=== PATIENT | female | born 1995 | race Caucasian/White ===

== ENCOUNTER 2017-06-15 13:28 | Emergency (ER) | payer SELFPAY ==
[2017-06-15] MEDS ORDERED: Ondansetron 4 MG/2 ML SDV IVPUSH ONE (14:30)
[2017-06-15] MEDS ORDERED: Ketorolac 30 MG/ML SDV IVPUSH ONE (14:30)
--- NOTE | 2017-06-15 14:50 | EDM.PDOC ---
ED HPI GENERAL MEDICAL PROBLEM - General Chief Complaint: Flank Pain Stated Complaint: KIDNEY INFECTION/STONE CAN'T KEEP ANYTHING DOWN Time Seen by Provider: 06/15/17 14:00 Source of Information: Reports: Patient, Family History Limitations: Reports: No Limitations - History of Present Illness INITIAL COMMENTS - FREE TEXT/NARRATIVE: 22-year-old female with right-sided flank pain for the past several days, nausea and vomiting but no dysuria. She also had a fever 2 days ago. In the clinic yesterday she was found to have a UTI and started on Bactrim, also given Flomax and hydrocortisone for a presumptive nephrolithiasis which she has had in the past. Onset: Unknown/Unsure Severity: Moderate Associated Symptoms: Reports: Fever/Chills, Malaise. Denies: Chest Pain, Cough Right Flank Pain Score (Numeric/FACES): 4 - Related Data Allergies Allergy/AdvReac Type Severity Reaction Status Date / Time No Known Allergies Allergy Verified 06/15/17 13:47 Home Meds: Home Meds Hydrocodone/Acetaminophen [Hydrocodon-Acetaminophen 5-325] 1 - 2 tab PO Q4H PRN 06/15/17 [History] Sulfamethoxazole/Trimethoprim [Sulfamethoxazole-Tmp Ds Tablet] 1 each PO BID [History] Tamsulosin [Tamsulosin 24 Hr] 0.4 mg PO DAILY 06/15/17 [History] Past Medical History Genitourinary History: Reports: Renal Calculus, UTI, Recurrent Psychiatric History: Reports: Anxiety Social & Family History - Family History : Reports: Renal Calculus - Tobacco Use Smoking Status *Q: Never Smoker Second Hand Smoke Exposure: No - Alcohol Use Days Per Week of Alcohol Use: 2 Number of Drinks Per Day: 4 Total Drinks Per Week: 8 - Recreational Drug Use Recreational Drug Use: No ED ROS GENERAL - Review of Systems Review Of Systems: See Below Constitutional: Reports: Chills, Malaise Respiratory: Denies: Shortness of Breath Cardiovascular: Denies: Chest Pain GI/Abdominal: Reports: Abdominal Pain. Denies: Vomiting : Reports: Flank Pain. Denies: Urgency Skin: Reports: No Symptoms Neurological: Denies: Headache ED EXAM, RENAL/ - Physical Exam Exam: See Below Exam Limited By: No Limitations General Appearance: Alert, No Apparent Distress Eye Exam: Bilateral Eye: Normal Inspection Head: Atraumatic Respiratory/Chest: No Respiratory Distress, Lungs Clear Cardiovascular: Regular Rate, Rhythm Extremities: Normal Inspection Neurological: Alert, Oriented Psychiatric: Normal Affect, Normal Mood Skin Exam: Warm, Dry Course - Vital Signs Last Recorded V/S: Last Vital Signs Temp 96.6 F 06/15/17 13:55 Pulse 111 H 06/15/17 15:51 Resp 18 06/15/17 15:51 BP 105/60 06/15/17 15:51 Pulse Ox 98 06/15/17 15:51 - Orders/Labs/Meds Orders: Active Orders 24 hr Category Date Time Status Abdomen Pelvis wo Cont [CT] Stat Exams 06/15/17 14:08 Ordered UA W/MICROSCOPIC [URIN] Urgent Lab 06/15/17 15:25 Ordered Labs: Laboratory Tests 06/15/17 06/15/17 06/15/17 Range/Units 14:48 14:48 15:25 WBC 17.6 H (4.5-11.0) K/uL RBC 4.97 (3.30-5.50) M/uL Hgb 14.3 (12.0-15.0) g/dL Hct 40.3 (36.0-48.0) % MCV 81 (80-98) fL MCH 29 (27-31) pg MCHC 36 (32-36) % Plt Count 231 (150-400) K/uL Neut % (Auto) 93 H (36-66) % Lymph % (Auto) 2 L (24-44) % [place] % (Auto) 6 (2-6) % Eos % (Auto) 0 L (2-4) % Baso % (Auto) 0 (0-1) % Sodium 135 L (140-148) mmol/L Potassium 3.4 L (3.6-5.2) mmol/L Chloride 97 L (100-108) mmol/L Carbon Dioxide 24 (21-32) mmol/L Anion Gap 17.4 H (5.0-14.0) mmol/L BUN 14 (7-18) mg/dL Creatinine 1.9 H D (0.6-1.0) mg/dL Est Cr Clr Drug Dosing 40.78 mL/min Estimated GFR (MDRD) 34 L (>60) Glucose 105 (74-106) mg/dL Calcium 9.0 (8.5-10.1) mg/dL Urine Color Yellow Urine Appearance Clear Urine pH 5.0 (4.5-8.0) Ur Specific Lam[place] 1.020 (1.008-1.030) Urine Protein Negative (NEGATIVE) mg/dL Urine Glucose (UA) Normal (NEGATIVE) mg/dL Urine Ketones 50 H (NEGATIVE) mg/dL Urine Occult Blood Negative (NEGATIVE) Urine Nitrite Negative (NEGATIVE) Urine Bilirubin Negative (NEGATIVE) Urine Urobilinogen Normal (NORMAL) mg/dL Ur Leukocyte Esterase Negative (NEGATIVE) Urine RBC Not seen (0-5) Urine WBC 0-5 (0-5) Ur Epithelial Cells Few Amorphous Sediment Many Urine Bacteria Moderate Urine Mucus Moderate Urine Other Meds: Medications Discontinued Medications Generic Name Dose Route Start Last Admin Trade Name Freq PRN Reason Stop Dose Admin Sodium Chloride 1,000 mls @ 1,000 mls/hr 06/15/17 15:00 06/15/17 14:51 Normal Saline IV 1,000 mls/hr ASDIRECTED ADEEL Administration Sodium Chloride 75 mls @ 3.5 mls/sec 06/15/17 15:04 Normal Saline IV 06/15/17 15:05 ONETIME ONE Ceftriaxone Sodium 1 gm/ 50 mls @ 100 mls/hr 06/15/17 16:00 06/15/17 16:08 Sodium Chloride IV 06/15/17 16:29 100 mls/hr ONETIME ONE Administration Iopamidol 100 ml 06/15/17 15:15 Isovue-300 (61%) IV . DIRECTED [facility] Ketorolac Tromethamine 30 mg 06/15/17 14:30 06/15/17 14:49 Toradol IVPUSH 06/15/17 14:31 30 mg ONETIME ONE Administration Ondansetron HCl 4 mg 06/15/17 14:30 06/15/17 14:47 Zofran IVPUSH 06/15/17 14:31 4 mg ONETIME ONE Administration Sodium Chloride 10 ml 06/15/17 15:04 06/15/17 16:52 Saline Flush FLUSH 06/15/17 15:05 10 ml ONETIME ONE Administration - Re-Assessments/Exams Free Text/Narrative Re-Assessment/Exam: 06/15/17 15:24 CT the abdomen and pelvis was obtained and confirmed a very large obstructing proximal right ureteral stone. CBC and BMP were then obtained, white count was over 17,000, creatinine 1.9 and GFR 34. A phone consultation was made with urology at that point. 06/15/17 16:10 UA now shows moderate bacteria but no white cells. It may be partially responsive to the oral Bactrim she is taken to this point. Urology in [place] accepted the patient to the hospitalist service at [facility] in [place]. Patient was given 1 g of IV Rocephin and will be transported by private car. Departure - Departure Time of Disposition: 16:58 Disposition: DC/Tfer to Other 70 Condition: Fair Clinical Impression: Nephrolithiasis - Discharge Information Instructions: Kidney Stones, [id number] Referrals: PCP,None [Primary Care Provider] - Forms: ED Department Discharge Care Plan Goals: Go directly to [facility] in [facility]. Avoid eating anything and only sips of water in route. - My Orders Last 24 Hours: My Active Orders 06/15/17 14:08 Abdomen Pelvis wo Cont [CT] Stat 06/15/17 15:25 UA W/MICROSCOPIC [URIN] Urgent - Assessment/Plan Last 24 Hours: My Active Orders 06/15/17 14:08 Abdomen Pelvis wo Cont [CT] Stat 06/15/17 15:25 UA W/MICROSCOPIC [URIN] Urgent
[2017-06-15] MEDS ORDERED: Sodium Chloride 0.9% 1,000 ML IV SCH (15:00)
[2017-06-15] MEDS ORDERED: Sodium Chloride 0.9% 10 ML Syringe FLUSH ONE (15:04)
[2017-06-15] MEDS ORDERED: Sodium Chloride 0.9% 75 ML IV ONE (15:04)
[2017-06-15] MEDS ORDERED: Iopamidol 612 MG/ML 100 ML Bottle IV SCH (15:15)
[2017-06-15 15:52] VITALS: BP 105/60
[2017-06-15] MEDS ORDERED: cefTRIAXone 1 GM in Sodium Chloride 0.9% 50 ML IV ONE (16:00)
== END 2017-06-15 16:58 | disposition other institution (70) ==
LOC: JP.ED 13:28
DX: N20.0 Calculus of kidney (principal); Z87.442 Personal history of urinary calculi
CPT/HCPCS: 36415; 74176; 80048; 81001; 85025; 96361; 96365; 96375; 99284; 99285; J0696; J1885; J2405; J7040; J7050

== ENCOUNTER 2017-07-10 10:59 | Emergency (ER) | payer BC, OTHER ==
[2017-07-10 11:16] VITALS: BP 128/69
--- NOTE | 2017-07-10 12:09 | EDM.PDOC ---
ED HPI GENERAL MEDICAL PROBLEM - General Chief Complaint: Genitourinary Problem Stated Complaint: NEPHROSTOMY TUBE WITH BLOOD Time Seen by Provider: 07/10/17 11:47 Source of Information: Reports: Patient, RN Notes Reviewed History Limitations: Reports: No Limitations - History of Present Illness INITIAL COMMENTS - FREE TEXT/NARRATIVE: 22-year-old female presents to the emergency department today with concerns about her nephrostomy tube, she recently had this placed on 15 June unfortunately today she pulled the stitch out which secures the tube to the outside after consultation with the triage nurse recommend report to the emergency department for further evaluation. She has no complaints at this time the tube is still producing urine in her bag Right Flank Pain Score (Numeric/FACES): 2 - Related Data Allergies Allergy/AdvReac Type Severity Reaction Status Date / Time No Known Allergies Allergy Verified 07/10/17 11:26 Home Meds: Home Meds Sulfamethoxazole/Trimethoprim [Sulfamethoxazole-Tmp Ds Tablet] 1 each PO BID [History] Tamsulosin [Tamsulosin 24 Hr] 0.4 mg PO DAILY 06/15/17 [History] Citalopram [Citalopram HBr] 20 mg PO DAILY 07/10/17 [History] oxyCODONE 5 mg PO Q4HR 07/10/17 [History] Past Medical History Genitourinary History: Reports: Renal Calculus, UTI, Recurrent Psychiatric History: Reports: Anxiety Social & Family History - Family History : Reports: Renal Calculus - Tobacco Use Smoking Status *Q: Never Smoker - Recreational Drug Use Recreational Drug Use: No ED ROS GENERAL - Review of Systems Review Of Systems: See Below Constitutional: Reports: No Symptoms Respiratory: Reports: No Symptoms Cardiovascular: Reports: No Symptoms GI/Abdominal: Reports: No Symptoms : Reports: No Symptoms ED EXAM, GENERAL - Physical Exam Exam: See Below Free Text/Narrative:: Examination of the nephrostomy tube appears to be in place area around the wound is clean dry and intact the stitch is loose the nephrostomy tube is located at approximately the stitch placement site bed connected to the tube still has urine present. Exam Limited By: No Limitations General Appearance: Alert, WD/WN, No Apparent Distress Respiratory/Chest: No Respiratory Distress GI/Abdominal: Soft, Non-Tender Course - Vital Signs Last Recorded V/S: Last Vital Signs Temp 98 F 07/10/17 11:27 Pulse 95 07/10/17 11:27 Resp 14 07/10/17 11:27 BP 128/69 07/10/17 11:27 Pulse Ox 99 07/10/17 11:27 Departure - Departure Time of Disposition: 12:07 Disposition: Home, Self-Care 01 Condition: Good Clinical Impression: Displacement of nephrostomy tube - Discharge Information Referrals: PCP,None [Primary Care Provider] - Additional Instructions: Secure your tube with tape, there are no concerns with the nephrostomy tube as long as it continues to produce urine, however if urine is no longer being produced in your bag recommend follow-up with interventional radiology in [facility] for immediate replacement of the tube. - Assessment/Plan Plan: Assessment Acuity = acute Site and laterality = nephrostomy tube check Etiology = pulled exterior stitch from nephrostomy tube Manifestations = none Location of injury = Home Lab values = none Plan Called discussed case with Dr. Stanley interventional radiology recommended taping the tube in place no issues at this time as long as the tube continues to function and produce urine. If no longer producing urine recommend follow-up in [place] for replacement of the tube This note was dictated using [employer] voice recognition software please call with any questions on syntax or grammar.
== END 2017-07-10 12:32 | disposition home or self-care (01) ==
LOC: JP.ED 10:59
DX: T83.022A Displacement of nephrostomy catheter, initial encounter (principal); Z79.899 Other long term (current) drug therapy; X58.XXXA Exposure to other specified factors, initial encounter
CPT/HCPCS: 99283

== ENCOUNTER 2017-08-06 09:40 | Emergency (ER) | payer BC ==
[2017-08-06] MEDS ORDERED: Sodium Chloride 0.9% 1,000 ML IV SCH (10:00)
--- NOTE | 2017-08-06 10:28 | EDM.PDOC ---
ED HPI GENERAL MEDICAL PROBLEM - General Chief Complaint: Neurological Problem Stated Complaint: CONFUSED/LT SIDE NUMBNESS Time Seen by Provider: 08/06/17 10:15 Source of Information: Reports: Patient, Family History Limitations: Reports: Physical Impairment (Patient is repetitive questioning, having difficulty answering questions) - History of Present Illness INITIAL COMMENTS - FREE TEXT/NARRATIVE: 22-year-old female that has had an increase in headaches over the past week and today developed a fairly sudden onset of right leg and right arm numbness, confusion, and dizziness. Her significant other who has been with her for 2 years was worried about her and brought her in, she is having difficulty answering questions. She just repeatedly says I don't know, I don't know. Even when asked if she has a headache she says no, then yes. Denies any visual complaints, shortness of breath, nausea or vomiting. Onset: Sudden (Suddenly worse this morning at around 9 AM) Duration: Other (Significant symptoms have lasted 1-1/2 hours) Severity: Moderate Associated Symptoms: Reports: Confusion, Headaches, Malaise, Other ( Paresthesias of the extremities) - Related Data Allergies Allergy/AdvReac Type Severity Reaction Status Date / Time No Known Allergies Allergy Verified 08/06/17 10:23 Home Meds: Home Meds Citalopram [Citalopram HBr] 20 mg PO DAILY 07/10/17 [History] Past Medical History Genitourinary History: Reports: Renal Calculus, UTI, Recurrent Psychiatric History: Reports: Anxiety Social & Family History - Family History : Reports: Renal Calculus - Tobacco Use Smoking Status *Q: Never Smoker - Caffeine Use Caffeine Use: Reports: None - Recreational Drug Use Recreational Drug Use: No ED ROS GENERAL - Review of Systems Review Of Systems: See Below Constitutional: Denies: Fever, Chills HEENT: Denies: Vision Change Respiratory: Denies: Shortness of Breath Cardiovascular: Denies: Chest Pain GI/Abdominal: Reports: Nausea, Vomiting Musculoskeletal: Reports: No Symptoms Skin: Denies: Rash Neurological: Reports: Confusion, Headache Psychiatric: Reports: Anxiety ED EXAM, NEURO - Physical Exam Exam: See Below Exam Limited By: No Limitations General Appearance: Alert, No Apparent Distress, Anxious (Patient is extremely anxious) Eye Exam: Bilateral Eye: Normal Inspection Head Exam: Atraumatic Respiratory/Chest: No Respiratory Distress, Lungs Clear Cardiovascular: Regular Rate, Rhythm. No: Tachycardia GI/Abdominal: Non-Tender Neurological: Alert, No Motor/Sensory Deficits, Other (Patient was able to stand and Romberg is negative but she doesn't cooperate well with the exam. Grasp strength is equal.) Psychiatric: Anxious Skin Exam: Warm, Dry Course - Vital Signs Last Recorded V/S: Last Vital Signs Temp 96.4 F 08/06/17 13:31 Pulse 71 08/06/17 13:31 Resp 16 08/06/17 13:31 BP 100/64 08/06/17 13:31 Pulse Ox 100 08/06/17 13:31 - Orders/Labs/Meds Orders: Active Orders 24 hr Category Date Time Status DRUG SCREEN, URINE [URCHEM] Stat Lab 08/06/17 13:33 Ordered UA W/MICROSCOPIC [URIN] Stat Lab 08/06/17 13:33 Ordered Labs: Laboratory Tests 08/06/17 08/06/17 08/06/17 Range/Units 10:00 10:00 10:19 WBC 6.9 (4.5-11.0) K/uL RBC 4.72 (3.30-5.50) M/uL Hgb 13.4 (12.0-15.0) g/dL Hct 38.3 (36.0-48.0) % MCV 81 (80-98) fL MCH 28 (27-31) pg MCHC 35 (32-36) % Plt Count 209 (150-400) K/uL Neut % (Auto) 63 (36-66) % Lymph % (Auto) 29 (24-44) % Hanson % (Auto) 7 H (2-6) % Eos % (Auto) 1 L (2-4) % Baso % (Auto) 1 (0-1) % Puncture Site Lt radial ABG pH 7.488 H (7.350-7.450) ABG pCO2 28.2 L (35.0-42.0) mmHg ABG pO2 114.0 H (75.0-100.0) mmHg ABG HCO3 21.2 L (22.0-26.0) mmol/L ABG Total CO2 18.6 L (21.0-25.0) mmol/L ABG O2 Saturation 99.1 H (95.0-98.0) % ABG O2 Content 17.8 (15.0-23.0) %vol ABG Base Excess -0.8 mm/L ABG Hemoglobin 12.9 (12.0-16.0) g/dL ABG Oxyhemoglobin 97.3 % ABG Carboxyhemoglobin 1.0 (0.0-1.6) % ABG Methemoglobin 0.8 % Gregory Test Passed O2 Delivery Device Room air Sodium 138 L (140-148) mmol/L Potassium 3.8 (3.6-5.2) mmol/L Chloride 104 (100-108) mmol/L Carbon Dioxide 24 (21-32) mmol/L Anion Gap 13.8 (5.0-14.0) mmol/L BUN 10 (7-18) mg/dL Creatinine 0.8 D (0.6-1.0) mg/dL Est Cr Clr Drug Dosing 92.79 mL/min Estimated GFR (MDRD) > 60 (>60) Glucose 109 H (74-106) mg/dL Calcium 8.7 (8.5-10.1) mg/dL Total Bilirubin 0.5 (0.2-1.0) mg/dL AST 18 (15-37) U/L ALT 23 (12-78) U/L Alkaline Phosphatase 74 (46-116) U/L Total Protein 7.3 (6.4-8.2) g/dL Albumin 3.9 (3.4-5.0) g/dL Globulin 3.4 (2.3-3.5) g/dL Albumin/Globulin Ratio 1.1 L (1.2-2.2) Urine Color Urine Appearance Urine pH (4.5-8.0) Ur Specific [place] (1.008-1.030) Urine Protein (NEGATIVE) mg/dL Urine Glucose (UA) (NEGATIVE) mg/dL Urine Ketones (NEGATIVE) mg/dL Urine Occult Blood (NEGATIVE) Urine Nitrite (NEGATIVE) Urine Bilirubin (NEGATIVE) Urine Urobilinogen (NORMAL) mg/dL Ur Leukocyte Esterase (NEGATIVE) Urine RBC (0-5) Urine WBC (0-5) Ur Epithelial Cells Amorphous Sediment Urine Bacteria Urine Mucus Urine Opiates Screen (NEGATIVE) Ur Oxycodone Screen (NEGATIVE) Urine Methadone Screen (NEGATIVE) Ur Propoxyphene Screen (NEGATIVE) Ur Barbiturates Screen (NEGATIVE) Ur Tricyclics Screen (NEGATIVE) Ur Phencyclidine Scrn (NEGATIVE) Ur Amphetamine Screen (NEGATIVE) U Methamphetamines Scrn (NEGATIVE) Urine MDMA Screen (NEGATIVE) U Benzodiazepines Scrn (NEGATIVE) U Cocaine Metab Screen (NEGATIVE) U Marijuana (THC) Screen (NEGATIVE) 08/06/17 08/06/17 Range/Units 13:33 13:33 WBC (4.5-11.0) K/uL RBC (3.30-5.50) M/uL Hgb (12.0-15.0) g/dL Hct (36.0-48.0) % MCV (80-98) fL MCH (27-31) pg MCHC (32-36) % Plt Count (150-400) K/uL Neut % (Auto) (36-66) % Lymph % (Auto) (24-44) % Hanson % (Auto) (2-6) % Eos % (Auto) (2-4) % Baso % (Auto) (0-1) % Puncture Site ABG pH (7.350-7.450) ABG pCO2 (35.0-42.0) mmHg ABG pO2 (75.0-100.0) mmHg ABG HCO3 (22.0-26.0) mmol/L ABG Total CO2 (21.0-25.0) mmol/L ABG O2 Saturation (95.0-98.0) % ABG O2 Content (15.0-23.0) %vol ABG Base Excess mm/L ABG Hemoglobin (12.0-16.0) g/dL ABG Oxyhemoglobin % ABG Carboxyhemoglobin (0.0-1.6) % ABG Methemoglobin % Gregory Test O2 Delivery Device Sodium (140-148) mmol/L Potassium (3.6-5.2) mmol/L Chloride (100-108) mmol/L Carbon Dioxide (21-32) mmol/L Anion Gap (5.0-14.0) mmol/L BUN (7-18) mg/dL Creatinine (0.6-1.0) mg/dL Est Cr Clr Drug Dosing mL/min Estimated GFR (MDRD) (>60) Glucose (74-106) mg/dL Calcium (8.5-10.1) mg/dL Total Bilirubin (0.2-1.0) mg/dL AST (15-37) U/L ALT (12-78) U/L Alkaline Phosphatase (46-116) U/L Total Protein (6.4-8.2) g/dL Albumin (3.4-5.0) g/dL Globulin (2.3-3.5) g/dL Albumin/Globulin Ratio (1.2-2.2) Urine Color Yellow Urine Appearance Slightly cloudy Urine pH 9.0 H (4.5-8.0) Ur Specific [place] 1.020 (1.008-1.030) Urine Protein Negative (NEGATIVE) mg/dL Urine Glucose (UA) Normal (NEGATIVE) mg/dL Urine Ketones Negative (NEGATIVE) mg/dL Urine Occult Blood Negative (NEGATIVE) Urine Nitrite Negative (NEGATIVE) Urine Bilirubin Negative (NEGATIVE) Urine Urobilinogen Normal (NORMAL) mg/dL Ur Leukocyte Esterase Negative (NEGATIVE) Urine RBC 0-5 (0-5) Urine WBC 0-5 (0-5) Ur Epithelial Cells Many Amorphous Sediment Many Urine Bacteria Not seen Urine Mucus Not seen Urine Opiates Screen Negative (NEGATIVE) Ur Oxycodone Screen Negative (NEGATIVE) Urine Methadone Screen Negative (NEGATIVE) Ur Propoxyphene Screen Negative (NEGATIVE) Ur Barbiturates Screen Negative (NEGATIVE) Ur Tricyclics Screen Negative (NEGATIVE) Ur Phencyclidine Scrn Negative (NEGATIVE) Ur Amphetamine Screen Negative (NEGATIVE) U Methamphetamines Scrn Negative (NEGATIVE) Urine MDMA Screen Negative (NEGATIVE) U Benzodiazepines Scrn Presumptive positive H (NEGATIVE) U Cocaine Metab Screen Negative (NEGATIVE) U Marijuana (THC) Screen Negative (NEGATIVE) Meds: Medications Discontinued Medications Generic Name Dose Route Start Last Admin Trade Name Selene PRN Reason Stop Dose Admin Chlorpromazine HCl 25 mg 08/06/17 11:29 08/06/17 11:36 Thorazine IM 08/06/17 11:30 25 mg ONETIME ONE Administration Lorazepam 1 mg 08/06/17 10:47 08/06/17 10:55 Ativan IM 1 mg ONETIME PRN Administration Anxiety - Re-Assessments/Exams Free Text/Narrative Re-Assessment/Exam: 08/06/17 10:27 CT the head will be obtained after ABGs on room air, CBC and CMP are drawn. 08/06/17 11:41 ABG showed moderate hyperventilation, CBC and CMP were reassuring. CT the head was negative, however the patient continued to display confusion, expressive aphasia and anxiety. I discussed her condition with neurology, and MRI of the head was recommended. Patient was given 25 mg of IM Thorazine to help calm her down and an MRI was ordered. 08/06/17 13:15 Brain MRI was read as normal. She continued to be expressively aphasic and confused. Discussed the normal scans with neurology in [place], and was recommended she be sent down for further testing such as ACCOUNT RETENTION REPRESENTATIVE testing and EEG. This was discussed with the family and they agree with the plan. She will be arranged to be sent by EMS. Departure - Departure Time of Disposition: 14:07 Disposition: DC/Tfer to Other 70 Condition: Fair Clinical Impression: Expressive aphasia Mental status change Qualifiers: Altered mental status type: disorientation Qualified Code(s): R41.0 - Disorientation, unspecified - Discharge Information Referrals: Catherine Patel PA [Primary Care Provider] - Forms: ED Department Discharge Care Plan Goals: Patient is to be transferred to neurology at [facility] for inpatient evaluation of mental status change and confusion - My Orders Last 24 Hours: My Active Orders 08/06/17 13:33 DRUG SCREEN, URINE [URCHEM] Stat UA W/MICROSCOPIC [URIN] Stat - Assessment/Plan Last 24 Hours: My Active Orders 08/06/17 13:33 DRUG SCREEN, URINE [URCHEM] Stat UA W/MICROSCOPIC [URIN] Stat
[2017-08-06] MEDS ORDERED: LORazepam 2 MG/ML SDV IM PRN (10:47)
--- NOTE | 2017-08-06 11:17 | CT ---
Head wo Cont CLINICAL HISTORY: Confusion, paresthesias COMPARISON: None TECHNIQUE: Transverse scans were obtained from the base of the skull through the vertex without IV co ntrast on a multislice, multidetector CT scanner. Auto dosage reduction and iterative reconstruction techniques employed. FINDINGS: There is moderate motion artifact. The CT was the repeated. There is no mass effect, hemor rhage, or extraaxial collection. The basal cisterns and sulci over the convexities are normal. The ve ntricles are normal. IMPRESSION: Limited noncontrast head CT due to motion artifact despite repeating images. No hemorrhage or mass effect. No extra-axial collections seen
[2017-08-06] MEDS ORDERED: chlorproMAZINE 50 MG/2 ML Amp IM ONE (11:29)
--- NOTE | 2017-08-06 12:50 | MR ---
Brain wo Cont CLINICAL HISTORY: Confusion, vomiting COMPARISON: Current head CT TECHNIQUE: Multiple axial, sagittal, and coronal images were obtained on a 1.5 T magnet with multiwei ghted sequences, FLAIR, and diffusion imaging without contrast. FINDINGS: There is moderate motion artifact despite repeated. series. There is no focal mass lesion. There is no hemmorhage or extraaxial collection. There is no restricted diffusion. The basal cisterns and sulci over the convexities are normal for age. The ventricles are normal for age. There is fluid signal in the posterior lateral aspect of the left sided sphenoid sinus IMPRESSION: Left sphenoid sinusitis No intracranial lesion, mass effect or hemorrhage
[2017-08-06 13:32] VITALS: BP 100/64
== END 2017-08-06 13:45 | disposition other institution (70) ==
LOC: JP.ED 09:40
DX: R47.01 Aphasia (principal); R41.0 Disorientation, unspecified; F41.9 Anxiety disorder, unspecified; Z79.899 Other long term (current) drug therapy
CPT/HCPCS: 36415; 36600; 70450; 70551; 80053; 80305; 81001; 82803; 85025; 96372; 99285; J2060; J3230